=== PATIENT | male | born 2005 | race Caucasian/White ===

== ENCOUNTER 2025-04-01 01:04 | Emergency (ER) | payer OTHER, SELFPAY ==
[2025-04-01 01:06] VITALS: BP 160/92
[2025-04-01 04:03] VITALS: BMI 60.3
--- NOTE | 2025-04-01 04:06 | EDRN ---
Pt's mother says he is here for 'discomfort in his rear end.' Pt says he thinks he has an anal fissure because it hurts to wipe and to walk. Pt says if he sits down immediately after moving it hurts. No blood in stool - mother says he does not
have a hemorrhoid. Pt says pain is internal, not external. Pt has been using preparation H wipes and they are not working any more. Pt more upset tonight because he can barely sit down and he noted more blood when he wiped. Symptoms have been
intermittent x 3-4 weeks. Pt did not go to his doctor. No abd pain, n/v/c. Pt sometimes has diarrhea, none now. No fever/chills/cough, urinary symptoms.
[2025-04-01 04:10] VITALS: BP 125/62
[2025-04-01 05:50] VITALS: BP 124/64
--- NOTE | 2025-04-01 06:18 | ED.GENMED ---
History of Present Illness
General
Chief Complaint: Anal/Rectal Problem
Time Seen by Provider: 04/01/25 06:07
History of Present Illness
History of Present Illness:
20-year-old male presents to the emergency department for evaluation of rectal discomfort and rectal itching for the past several weeks. Also notes blood when wiping. Denies any blood in the toilet bowl or rectal pain between bowel movements. Has
been using 'dude wipes' for the past month as well. No fevers or chills.
Past History
Social History
Tobacco: Non-smoker
Alcohol: None
Drug: None
Review of Systems
Review of Systems
Allergies reviewed?: Yes
All Other Systems: ROS reviewed and negative except as documented in HPI and ROS
Phy Exam
Physical Exam
Physical Exam:
GEN: Well appearing, NAD, WDWN
HEENT: Oral mucosa moist, no scleral icterus
Cardiac: Regular rate
Lung: No respiratory distress, no tachypnea
Rectal: Skin desquamation of the perirectal soft tissue with scant thick white discharge. No evidence of bleeding. No visible or palpable anal fissures or hemorrhoids
MSK: No gross deformity or injuries
Skin: Good color, no pallor or jaundice, no rashes
Neuro: AO x3, moves all extremities freely
Psych: Calm, cooperative
Course
Vital Signs
Initial and Last Documented VS:
Initial Vital Signs
Temp Pulse Resp BP Pulse Ox
98.4 F 66 20 160/92 96
04/01/25 01:06 04/01/25 01:06 04/01/25 01:06 04/01/25 01:06 04/01/25 01:06
Last Documented Vital Signs
Temp Pulse Resp BP Pulse Ox
98.4 F 66 14 124/64 97
04/01/25 01:06 04/01/25 05:50 04/01/25 05:50 04/01/25 05:50 04/01/25 04:10
MDM/Problems Addressed
MDM/Problems Addressed:
Likely candidal dermatitis of the perirectal skin secondary to poor hygiene and morbid obesity. Recommend topical antifungals and drying agents
*Critical Care Note
Total Time (30-74mins, 75-104mins- exclusive of procedures): Not Applicable
ED Attending Note
-
Portions of this chart may have been created with voice recognition software.� Occasional wrong word or��sound alike� substitutions may have occurred due to the inherent limitations of voice recognition software.
Discharge Plan
Departure
Patient Disposition: Home (Routine Discharge)
Date of Disposition: 04/01/25
Time of Disposition: 06:20
Patient with high blood pressure during this ER visit?: No
Discharge Problem:
Candidal dermatitis
Instructions: Diaper Rash ED
Prescriptions:
New
nystatin 100,000 unit/gram ointment
1 applic topical QID 14 Days Qty: 60 1RF
No Action
dextroamphetamine-amphetamine [Adderall XR] 10 mg Capsule,Extended Release 24hr
10 mg PO NOON
Referrals:
George Joya MD [Family Provider] -
Activity Restrictions/Additional Instructions:
Dry the rectal area well after bowel movements
Avoid use of Dude Wipes going forward
Interventions
Interventions:
*Risk Screen - Suicide Last Done: 04/01/25 01:06
*General Assessment Last Done: 04/01/25 04:03
*Neglect/Abuse Screening Last Done: 04/01/25 01:06
*ED- Fall Risk Assessment Last Done: 04/01/25 04:03
*Nursing Disposition Last Done: 04/01/25 06:25
QQ-Jobnew-Fdpwpdprea Assessment Last Done: 04/01/25 04:19
ED-Skin Assessment Last Done: 04/01/25 04:19
Discharge Date and Time
Discharge Date/Time: 04/01/25 06:25
Print Language: MONGOLIAN
== END 2025-04-01 06:25 | disposition home or self-care (01) ==
LOC: EMR 01:04
PROVIDERS: EMERGENCY PHYSICIAN Emergency Medicine; FAMILY PHYSICIAN Family Medicine
DX: B37.2 Candidiasis of skin and nail (principal); L30.8 Other specified dermatitis; E66.01 Morbid (severe) obesity due to excess calories
CPT/HCPCS: 99282

== ENCOUNTER 2025-07-05 00:29 | Emergency (ER) | payer OTHER, SELFPAY ==
[2025-07-05 00:37] VITALS: BP 136/80
[2025-07-05 00:54] VITALS: BMI 58.3
[2025-07-05] MEDS: PEPCID 40 MG PO (02:25)
[2025-07-05] MEDS: BENADRYL 25 MG PO (02:25)
--- NOTE | 2025-07-05 02:28 | ED.GENMED ---
History of Present Illness
General
Chief Complaint: Skin Problem
Source: patient
Exam Limitations: none
Time Seen by Provider: 07/05/25 01:52
Nursing documentation reviewed up to this point in time: agreed with
History of Present Illness
History of Present Illness:
Note:
CHIEF COMPLAINT(S)
Itchy rash on the left posterior arm.
HISTORY OF PRESENT ILLNESS
The patient is a 20-year-old male with a past medical history significant for Attention Deficit Hyperactivity Disorder (ADHD). He presented with a small, patchy rash on the left posterior arm, noted over the past two days. The patient describes this
area as itchy and reports having scratched it multiple times; a day following these episodes, a small, raised, and bumpy area developed. The patient denies any fluid-filled vesicles, drainage, fever, or chills associated with this rash. He has not
experienced similar symptoms in the past. The itching has been intermittent. The patient confirms he hasnt started any new topical products such as laundry detergents, body washes, or soaps, and denies known contact with irritants like poison lc.
There is no reported dyspnea or swelling of the tongue or lips. The rash has not spread beyond the initial area, and no medications have been taken for this condition.
PHYSICAL EXAM
General: Alert, no acute distress.
Skin: 2.5 by 1.5-inch maculopapular rash with excoriations and dermatographism on the left posterior arm/armpit area.
Head: Normocephalic, atraumatic.
Neck: Supple, trachea midline.
Eye, Ears, Nose, Mouth, and Throat: Oral mucosa moist. No intraoral lesions. No tongue or lip swelling.
Cardiovascular: Normal peripheral perfusion, No edema.
Respiratory: Respirations are non-labored.
Gastrointestinal: Abdomen non-distended.
Musculoskeletal: Normal ROM, normal strength.
Neurological: Alert and oriented to person, place, time, and situation, No focal neurological deficit observed.
Psychiatric: Cooperative, appropriate mood & affect.
DIFFERENTIAL DIAGNOSIS
The Differential Diagnosis includes, in no particular order and is not limited to:
1. Contact dermatitis
2. Eczema
3. Insect bite reaction
4. Urticaria
5. Psoriasis
6. Folliculitis
7. Fungal skin infection
8. Atopic dermatitis
9. Drug reaction
10. Prurigo nodularis
Disposition:
SUMMARY OF ENCOUNTER
The patient is a 20-year-old male who presented to the emergency department with a new onset itchy rash on the right posterior arm. The rash began after the patient scratched himself, and it has not been associated with airway involvement, intraoral
lesions, blistering, or a widespread rash. On examination, a maculopapular rash with excoriations was observed. The differential diagnosis considered contact dermatitis and dermatographic urticaria. The patient was treated in the emergency
department with diphenhydramine (Benadryl) and famotidine. A prednisone taper was not deemed necessary due to the limited area of involvement. The use of [id number] hydrocortisone cream was discussed for further management. The patient was
determined to be stable for discharge.
DISPOSITION
Discharge.
ASSESSMENT
Contact dermatitis versus dermatographic urticaria.
EMERGENCY TREATMENTS ADMINISTERED
Diphenhydramine and famotidine.
PATIENT EDUCATION AND COUNSELING
Advised the use of [id number]-[id number]-npidvay hydrocortisone cream for symptom management and instructed to follow up with primary care provider.
FOLLOW-UP INSTRUCTIONS
Patient advised to follow up with primary care provider for further evaluation and management.
MEDICAL DECISION MAKING
-Complexity of Data Reviewed: Chronic conditions affecting care includes acne vulgaris. Differential Diagnosis includes contact dermatitis, eczema, insect bite reaction, urticaria, psoriasis, folliculitis, fungal skin infection, atopic dermatitis,
drug reaction, and prurigo nodularis.
-Data:
Category 1
No additional testing was considered or ordered.
-Risk:
Consideration of Admission/Observation: Escalation of care including admission/observation was not necessary given the limited involvement of the rash and stable condition. The work-up was reassuring, and the patients symptoms were well-controlled
upon reevaluation. Patient is deemed safe for outpatient management with close follow-up.
DIAGNOSIS
1. Contact dermatitis (ICD-10: L23.9)
vs Dermatographic urticaria
Past History
Social History
Tobacco: Non-smoker
Alcohol: None
Drug: None
Review of Systems
Review of Systems
All Other Systems: ROS reviewed and negative except as documented in HPI and ROS
Phy Exam
Physical Exam
Physical Exam:
see hpi
Course
Orders/Labs/Results
Orders:
Orders
07/05/25 02:18
Diphenhydramine [Benadryl] 25 mg PO NOW STA
Famotidine [Pepcid] 40 mg PO NOW STA
Vital Signs
Initial and Last Documented VS:
Initial Vital Signs
Temp Pulse BP Pulse Ox
98.3 F 92 136/80 98
07/05/25 00:37 07/05/25 00:37 07/05/25 00:37 07/05/25 00:37
Last Documented Vital Signs
Temp Pulse BP Pulse Ox
98.3 F 92 136/80 98
07/05/25 00:37 07/05/25 00:37 07/05/25 00:37 07/05/25 02:28
*Pulse Oximetry
SaO2: 98
Oxygen Mode of Delivery: Room air
Patient hypoxic: no
*Critical Care Note
Total Time (30-74mins, 75-104mins- exclusive of procedures): Not Applicable
ED Attending Note
-
Portions of this chart may have been created with voice recognition software.� Occasional wrong word or��sound alike� substitutions may have occurred due to the inherent limitations of voice recognition software.
Discharge Plan
Departure
Patient Disposition: Home (Routine Discharge)
Date of Disposition: 07/05/25
Time of Disposition: :26
Patient with high blood pressure during this ER visit?: Yes
Condition: Good
Discharge Problem:
Dermatitis
Instructions: Dermatitis ( Contact ), BLOOD PRESSURE
Prescriptions:
No Action
dextroamphetamine-amphetamine [Adderall XR] 10 mg Capsule,Extended Release 24hr
10 mg PO NOON
nystatin 100,000 unit/gram ointment
1 applic topical QID 14 Days Qty: 60 1RF
Referrals:
George Joya MD [Family Provider, [facility]]
Activity Restrictions/Additional Instructions:
Please follow up with your primary care provider in 1 week to ensure resolution of your symptoms.
Please sheepskin pickler 1% to 2% hydrocortisone cream [id number]. You can apply a small amount of the cream over the affected area twice daily with at least an 8-hour gap between doses for the next 4 days.
You can also take Benadryl 25 mg every 4-6 hours as needed for itching for the next few days. Please do not drive while taking this medication. It can make you drowsy.
PLEASE RETURN TO THE ER SHOULD YOU DEVELOP FEVERS OR CHILLS, SPREADING OF THE RASH WITH INCREASING PAIN OR ITCHING, INTRACTABLE NAUSEA OR VOMITING, PEELING OF THE SKIN, INTRAORAL LESIONS, OR ANY OTHER SIGNS OR SYMPTOMS WORRISOME TO YOU.
Interventions
Interventions:
*Risk Screen - Suicide Last Done: 07/05/25 00:49
*General Assessment Last Done: 07/05/25 00:49
*Neglect/Abuse Screening Last Done: 07/05/25 00:49
*ED- Fall Risk Assessment Last Done: 07/05/25 00:49
*ED COVID-19 Vaccine History Last Done: 07/05/25 00:49
*Nursing Disposition Last Done: 07/05/25 02:30
ED-Skin Assessment Last Done: 07/05/25 01:33
Discharge Date and Time
Discharge Date/Time: 07/05/25 02:30
Print Language: WELSH
== END 2025-07-05 02:30 | disposition home or self-care (01) ==
LOC: EMR 00:29
PROVIDERS: EMERGENCY PHYSICIAN Emergency Medicine; FAMILY PHYSICIAN Family Medicine
DX: L30.9 Dermatitis, unspecified (principal); R03.0 Elevated blood-pressure reading, without diagnosis of hypertension; F90.9 Attention-deficit hyperactivity disorder, unspecified type
CPT/HCPCS: 99283